=== PATIENT | male | born 1985 | race Caucasian/White ===

== ENCOUNTER 2017-10-13 00:50 | Inpatient (IN) | payer BC ==
--- NOTE | 2017-10-13 00:57 | EDM.PDOC ---
ED HPI GENERAL MEDICAL PROBLEM - General Chief Complaint: Gastrointestinal Problem Stated Complaint: VOMITING/NAUSEA Time Seen by Provider: 10/13/17 00:56 Source of Information: Reports: Patient History Limitations: Reports: No Limitations - History of Present Illness INITIAL COMMENTS - FREE TEXT/NARRATIVE: 32 year old male brought into ED by his aunt for nausea, vomiting and lower back pain. Symptoms began on Monday and initially presented as intermittent nausea and vomiting. Yesterday he developed continuous lower back pain that is worsened by specific movements but he is unsure what kind of movements. The pain is sharp and located around the center of his lower back. Pain does not move or radiate down either legs. He has not had any problems with bowel/ bladder control. He has not had any trauma or falls. His nausea and vomiting also worsened yesterday night and since then he has not been able to hold down any food or liquid. Even ingestion of water makes him vomit immediately. He denies any fever, chills, night sweats, constipation, diarrhea, dysuria, burning with urination, hematuria, confusion, chest pain or sob. He thinks he may be urinating more frequently than normal. He denies any sexual activity. He drinks alcohol 1x/month. He smokes few cigarettes per month. low back Pain Score (Numeric/FACES): 3 - Related Data Allergies Allergy/AdvReac Type Severity Reaction Status Date / Time No Known Allergies Allergy Verified 10/13/17 00:53 Home Meds: Home Meds . [No Known Home Meds] 08/28/14 [History] Past Medical History - Past Health History Medical/Surgical History: Denies Medical/Surgical History Other Musculoskeletal History: tendonitis Social & Family History - Tobacco Use Smoking Status *Q: Current Every Day Smoker Years of Tobacco use: 16 Second Hand Smoke Exposure: No - Alcohol Use Days Per Week of Alcohol Use: 0 - Recreational Drug Use Recreational Drug Use: No ED ROS GENERAL - Review of Systems Review Of Systems: See Below Constitutional: Reports: Weakness. Denies: Fever, Chills, Night Sweats HEENT: Reports: No Symptoms Respiratory: Reports: No Symptoms Cardiovascular: Reports: No Symptoms Endocrine: Reports: No Symptoms GI/Abdominal: Reports: Nausea, Vomiting. Denies: Abdominal Pain, Black Stool, Bloody Stool, Constipation, Diarrhea, Decreased Appetite, Difficulty Swallowing , Distension : Reports: Frequency, Urgency. Denies: Discharge, Dysuria, Flank Pain, Hematuria, Incontinence Musculoskeletal: Reports: No Symptoms Skin: Reports: No Symptoms Neurological: Reports: No Symptoms Psychiatric: Reports: No Symptoms Hematologic/Lymphatic: Reports: No Symptoms Immunologic: Reports: No Symptoms ED EXAM, GENERAL - Physical Exam Exam: See Below Exam Limited By: No Limitations General Appearance: Alert, WD/WN, Mild Distress Eye Exam: Bilateral Eye: PERRL Ears: Normal External Exam, Hearing Grossly Normal Nose: Normal Inspection, Normal Mucosa, No Blood Throat/Mouth: Normal Inspection, Normal Lips, Normal Teeth, Normal Gums, Normal Voice, No Airway Compromise Head: Atraumatic, Normocephalic Neck: Normal Inspection, Supple, Non-Tender, Full Range of Motion Respiratory/Chest: No Respiratory Distress, Lungs Clear, Normal Breath Sounds, No Accessory Muscle Use Cardiovascular: Normal Peripheral Pulses, Regular Rate, Rhythm, No Edema, No Gallop Peripheral Pulses: 2+: Radial (L), Radial (R) GI/Abdominal: Normal Bowel Sounds, Soft, Non-Tender, No Distention. No: Guarding, Rigid, Rebound, Hepatomegaly, Splenomegaly Back Exam: Normal Inspection, Full Range of Motion, Other (SLR negative ). No: CVA Tenderness (L), CVA Tenderness (R), Decreased Range of Motion Extremities: Normal Inspection, Non-Tender, No Pedal Edema, Slow Capillary Refill. No: Pedal Edema Neurological: Alert, Oriented, CN II-XII Intact, Normal Cognition, Normal Gait Psychiatric: Normal Affect, Normal Mood Skin Exam: Warm, Dry, Intact, No Rash Lymphatic: No Adenopathy Course - Vital Signs Last Recorded V/S: Last Vital Signs Temp 37.1 C 10/13/17 03:08 Pulse 77 10/13/17 00:50 Resp 18 10/13/17 03:08 BP 130/89 10/13/17 03:08 Pulse Ox 95 10/13/17 03:08 - Orders/Labs/Meds Orders: Active Orders 24 hr Category Date Time Status Abdomen Pelvis wo Cont [CT] Stat Exams 10/13/17 02:27 Taken CULTURE BLOOD [BC] Stat Lab 10/13/17 02:37 Received CULTURE BLOOD [BC] Stat Lab 10/13/17 02:48 Received Sodium Chloride 0.9% [Normal Saline] 1,000 ml Med 10/13/17 03:00 Active IV ASDIRECTED Blood Culture x2 Reflex Set [OM.PC] Stat Oth 10/13/17 02:26 Ordered Medication Orders Sodium Chloride (Normal Saline) 1,000 mls @ 125 mls/hr IV ASDIRECTED ABBEY Last Admin: 10/13/17 03:04 Dose: 125 mls/hr Labs: Laboratory Tests 10/13/17 10/13/17 10/13/17 Range/Units 01:00 01:27 01:27 WBC 12.72 H (4.0-11.0) K/uL RBC 4.98 (4.50-5.90) M/uL Hgb 15.2 (13.0-17.0) g/dL Hct 44.2 (38.0-50.0) % MCV 88.8 (80.0-98.0) fL MCH 30.5 (27.0-32.0) pg MCHC 34.4 (31.0-37.0) g/dL RDW Std Deviation 40.1 (28.0-62.0) fl RDW Coeff of Ephraim 13 (11.0-15.0) % Plt Count 271 (150-400) K/uL MPV 8.80 (7.40-12.00) fL Neut % (Auto) 72.0 (48.0-80.0) % Lymph % (Auto) 16.9 (16.0-40.0) % [place] % (Auto) 9.3 (0.0-15.0) % Eos % (Auto) 1.5 (0.0-7.0) % Baso % (Auto) 0.3 (0.0-1.5) % Neut # (Auto) 9.2 H (1.4-5.7) K/uL Lymph # (Auto) 2.2 (0.6-2.4) K/uL [place] # (Auto) 1.2 H (0.0-0.8) K/uL Eos # (Auto) 0.2 (0.0-0.7) K/uL Baso # (Auto) 0.0 (0.0-0.1) K/uL Sodium 146 (136-146) mmol/L Potassium 3.9 (3.5-5.1) mmol/L Chloride 110 (98-110) mmol/L Carbon Dioxide 24 (21-31) mmol/L BUN 19 (6.0-23.0) mg/dL Creatinine 2.2 H (0.6-1.5) mg/dL Est Cr Clr Drug Dosing 49.77 mL/min Estimated GFR (MDRD) 34.9 ml/min Glucose 106 (60-110) mg/dL Calcium 9.2 (8.8-10.8) mg/dL Total Bilirubin 0.7 (0.1-1.5) mg/dL AST 20 (5-40) IU/L ALT 21 (8-54) IU/L Alkaline Phosphatase 67 (40-150) Creatine Kinase (9-236) IU/L Total Protein 7.2 (6.0-8.0) g/dL Albumin 4.1 (3.5-5.0) g/dL Globulin 3.1 (2.0-3.5) g/dL Albumin/Globulin Ratio 1.3 (1.3-2.8) Lipase (7-80) U/L Urine Color YELLOW Urine Appearance CLEAR Urine pH 6.0 (5.0-8.0) Ur Specific [place] <= 1.005 (1.001-1.035) Urine Protein TRACE (NEGATIVE) mg/dL Urine Glucose (UA) NEGATIVE (NEGATIVE) mg/dL Urine Ketones NEGATIVE (NEGATIVE) mg/dL Urine Occult Blood LARGE H (NEGATIVE) Urine Nitrite NEGATIVE (NEGATIVE) Urine Bilirubin NEGATIVE (NEGATIVE) Urine Urobilinogen 0.2 (<2.0) EU/dL Ur Leukocyte Esterase NEGATIVE (NEGATIVE) Urine RBC 2-4 (0-2/HPF) Urine WBC 2-3 (0-5/HPF) Ur Epithelial Cells RARE (NONE-FEW) Urine Bacteria FEW (NEGATIVE) 10/13/17 10/13/17 Range/Units 01:27 01:27 WBC (4.0-11.0) K/uL RBC (4.50-5.90) M/uL Hgb (13.0-17.0) g/dL Hct (38.0-50.0) % MCV (80.0-98.0) fL MCH (27.0-32.0) pg MCHC (31.0-37.0) g/dL RDW Std Deviation (28.0-62.0) fl RDW Coeff of Ephraim (11.0-15.0) % Plt Count (150-400) K/uL MPV (7.40-12.00) fL Neut % (Auto) (48.0-80.0) % Lymph % (Auto) (16.0-40.0) % [place] % (Auto) (0.0-15.0) % Eos % (Auto) (0.0-7.0) % Baso % (Auto) (0.0-1.5) % Neut # (Auto) (1.4-5.7) K/uL Lymph # (Auto) (0.6-2.4) K/uL [place] # (Auto) (0.0-0.8) K/uL Eos # (Auto) (0.0-0.7) K/uL Baso # (Auto) (0.0-0.1) K/uL Sodium (136-146) mmol/L Potassium (3.5-5.1) mmol/L Chloride (98-110) mmol/L Carbon Dioxide (21-31) mmol/L BUN (6.0-23.0) mg/dL Creatinine (0.6-1.5) mg/dL Est Cr Clr Drug Dosing mL/min Estimated GFR (MDRD) ml/min Glucose (60-110) mg/dL Calcium (8.8-10.8) mg/dL Total Bilirubin (0.1-1.5) mg/dL AST (5-40) IU/L ALT (8-54) IU/L Alkaline Phosphatase (40-150) Creatine Kinase 91 (9-236) IU/L Total Protein (6.0-8.0) g/dL Albumin (3.5-5.0) g/dL Globulin (2.0-3.5) g/dL Albumin/Globulin Ratio (1.3-2.8) Lipase 17 (7-80) U/L Urine Color Urine Appearance Urine pH (5.0-8.0) Ur Specific [place] (1.001-1.035) Urine Protein (NEGATIVE) mg/dL Urine Glucose (UA) (NEGATIVE) mg/dL Urine Ketones (NEGATIVE) mg/dL Urine Occult Blood (NEGATIVE) Urine Nitrite (NEGATIVE) Urine Bilirubin (NEGATIVE) Urine Urobilinogen (<2.0) EU/dL Ur Leukocyte Esterase (NEGATIVE) Urine RBC (0-2/HPF) Urine WBC (0-5/HPF) Ur Epithelial Cells (NONE-FEW) Urine Bacteria (NEGATIVE) Meds: Medications Generic Name Dose Route Start Last Admin Trade Name Genevieve PRN Reason Stop Dose Admin Sodium Chloride 1,000 mls @ 125 mls/hr 10/13/17 03:00 10/13/17 03:04 Normal Saline IV 125 mls/hr ASDIRECTED ABBEY Administration Discontinued Medications Generic Name Dose Route Start Last Admin Trade Name Genevieve PRN Reason Stop Dose Admin Ceftriaxone Sodium 1,000 mg 10/13/17 02:31 10/13/17 02:35 Rocephin IVPUSH 10/13/17 02:32 Not Given ONETIME ONE Sodium Chloride 1,000 mls @ 999 mls/hr 10/13/17 01:15 10/13/17 01:30 Normal Saline IV 10/13/17 02:15 999 mls/hr .BOLUS ONE Administration Ceftriaxone Sodium/Dextrose 1 50 mls @ 100 mls/hr 10/13/17 02:33 10/13/17 03: 04 gm/ Premix IV 10/13/17 03:02 100 mls/hr ONETIME ONE Administration Ondansetron HCl 4 mg 10/13/17 01:27 10/13/17 01:32 Zofran IVPUSH 10/13/17 01:28 4 mg ONETIME ONE Administration Departure - Departure Time of Disposition: 05:16 Disposition: Admitted As Inpatient 66 Clinical Impression: Acute kidney failure, Hematuria, Nausea & vomiting - Discharge Information Referrals: PCP,None [Primary Care Provider] - Forms: ED Department Discharge Additional Instructions: The following information is given to patients seen in the emergency department who are being discharged to home. This information is to outline your options for follow-up care. We provide all patients seen in our emergency department with a follow-up referral. The need for follow-up, as well as the timing and circumstances, are variable depending upon the specifics of your emergency department visit. If you don't have a primary care physician on staff, we will provide you with a referral. We always advise you to contact your personal physician following an emergency department visit to inform them of the circumstance of the visit and for follow-up with them and/or the need for any referrals to a consulting specialist. The emergency department will also refer you to a specialist when appropriate. This referral assures that you have the opportunity for followup care with a specialist. All of these measure are taken in an effort to provide you with optimal care, which includes your followup. Under all circumstances we always encourage you to contact your private physician who remains a resource for coordinating your care. When calling for followup care, please make the office aware that this follow-up is from your recent emergency room visit. If for any reason you are refused follow-up, please contact the [facility] emergency department at and asked to speak to the emergency department charge nurse. - Problem List Review Problem List Initiated/Reviewed/Updated: Yes - My Orders Last 24 Hours: My Active Orders 10/13/17 02:26 Blood Culture x2 Reflex Set [OM.PC] Stat 10/13/17 02:27 Abdomen Pelvis wo Cont [CT] Stat 10/13/17 02:37 CULTURE BLOOD [BC] Stat 10/13/17 02:48 CULTURE BLOOD [BC] Stat 10/13/17 03:00 Sodium Chloride 0.9% [Normal Saline] 1,000 ml IV ASDIRECTED - Assessment/Plan Last 24 Hours: My Active Orders 10/13/17 02:26 Blood Culture x2 Reflex Set [OM.PC] Stat 10/13/17 02:27 Abdomen Pelvis wo Cont [CT] Stat 10/13/17 02:37 CULTURE BLOOD [BC] Stat 10/13/17 02:48 CULTURE BLOOD [BC] Stat 10/13/17 03:00 Sodium Chloride 0.9% [Normal Saline] 1,000 ml IV ASDIRECTED Plan: Diagnostics: CBC, CMP, UA, Blood Cultures, CT Abd/Pelvis wo contrast, Total [employer]: IV NS boxus x1, IV NS infusion @ 125 ml/hour, Zofran 4 mg IV, Rocephin 1 gm IV Assessment: MARY ELLEN Hematuria Nausea/Vomiting Plan: admit to inpatient - patient has been accepted by Dr. Fall
[2017-10-13] MEDS ORDERED: Sodium Chloride 0.9% 1,000 ML IV ONE (01:15)
[2017-10-13] MEDS ORDERED: Ondansetron 4 MG/2 ML SDV IVPUSH ONE (01:27)
[2017-10-13] MEDS ORDERED: cefTRIAXone 1,000 MG VIAL IVPUSH ONE (02:31)
[2017-10-13] MEDS ORDERED: cefTRIAXone 1 GM in Premix Bag 1 BAG IV ONE (02:33)
[2017-10-13] MEDS: Sodium Chloride 0.9% 1,000 ML IV SCH ×2 (03:04→10:12)
[2017-10-13] MEDS ORDERED: Ondansetron 4 MG/2 ML SDV IVPUSH PRN (09:37)
[2017-10-13] MEDS ORDERED: cefTRIAXone 1 GM in Premix Bag 1 BAG IV SCH (10:00)
[2017-10-13] MEDS: Acetaminophen 325 MG Tab PO PRN ×2 (10:25→20:01)
[2017-10-13] MEDS: Sodium Chloride 0.45% 1,000 ML IV SCH ×2 (12:26→19:17)
--- NOTE | 2017-10-13 14:18 | CT ---
EXAM DATE: 10/13/17 PATIENT'S AGE: 32 Patient: BATSHEVA AZAR Facility: [place], [place] Site . Site : 1985 Study: CT Abdomen/Pelvis [id number] 3:07:19 AM Ordering Physician: Mariangel Delgadillo Final Report: INDICATION: Nausea, vomiting, leukocytosis, micro hematuria TECHNIQUE: CT abdomen and pelvis without contrast. COMPARISON: None FINDINGS: Lower chest: Unremarkable. Liver: Unremarkable. Spleen: Unremarkable. Pancreas: Unremarkable. Gallbladder and bile ducts: Unremarkable. Adrenal glands: Unremarkable. Kidneys: Unremarkable. No kidney or ureteral stones and no hydronephrosis. GI tract: Unremarkable. Appendix is normal. Vascular structures: Unremarkable. Lymph nodes: Unremarkable. Miscellaneous: Unremarkable. No free air or significant free fluid. Pelvic Organs: Unremarkable. Bones: Unremarkable for age. IMPRESSION: Unremarkable noncontrast CT of the abdomen and pelvis. No urinary tract stones, hydronephrosis, or other cause for flank pain. Please note that all CT scans at this facility use dose modulation, iterative reconstruction, and/or weight-based dosing when appropriate to reduce radiation dose to as low as reasonably achievable. Dictated by Yoko Rowan MD @ Oct 13 2017 3:31AM (Electronic Signature) Report Signed by Proxy. [facility]
--- NOTE | 2017-10-13 15:40 | PCM.HP ---
H&P History of Present Illness - General Date of Service: 10/13/17 Admit Problem/Dx: Admission Diagnosis/Problem Admission Diagnosis/Problem Acute kidney injury Patient presented to Er due to intractable vomiting that started 2 days ago , no abdominal pain , no dysuria. No flank pain, no diarrhea , no fever, no similar episodes in the past. he has some mild back pain lower back on and off. No sick contacts. Has history of gout Source of Information: Patient - History of Present Illness Onset of Symptoms: Reports: Gradual Duration of Symptoms: Reports: Day(s): Head Pain Score (Numeric/FACES): 1 low back Pain Score (Numeric/FACES): 0 - Related Data Allergies/Adverse Reactions: Allergies Allergy/AdvReac Type Severity Reaction Status Date / Time No Known Allergies Allergy Verified 10/13/17 00:53 Home Medications: Home Meds . [No Known Home Meds] 08/28/14 [History] Past Medical History - Past Health History Medical/Surgical History: Denies Medical/Surgical History Musculoskeletal History: Reports: Gout Other Musculoskeletal History: tendonitis - Infectious Disease History Infectious Disease History: Reports: Chicken Pox Social & Family History - Family History Family Medical History: Noncontributory - Tobacco Use Smoking Status *Q: Current Some Day Smoker Years of Tobacco use: 14 Packs/Tins Daily: 0 Second Hand Smoke Exposure: No - Caffeine Use Caffeine Use: Reports: Energy Drinks, Soda - Alcohol Use Days Per Week of Alcohol Use: 0 - Recreational Drug Use Recreational Drug Use: No H&P Review of Systems - Review of Systems: Review Of Systems: See Below General: Reports: No Symptoms HEENT: Reports: No Symptoms Pulmonary: Reports: No Symptoms Cardiovascular: Reports: No Symptoms Gastrointestinal: Reports: Nausea, Vomiting Genitourinary: Reports: No Symptoms Musculoskeletal: Reports: Back Pain Skin: Reports: No Symptoms Psychiatric: Reports: No Symptoms Neurological: Reports: No Symptoms Hematologic/Lymphatic: Reports: No Symptoms Immunologic: Reports: No Symptoms Exam - Exam Exam: See Below - Vital Signs Vital Signs: Last Vital Signs Temp 97.9 F 10/13/17 11:30 Pulse 62 10/13/17 11:30 Resp 18 10/13/17 11:30 BP 154/85 H 10/13/17 11:30 Pulse Ox 95 10/13/17 11:30 Weight: 297 lb 5 oz - Exam General: Alert, Oriented, Cooperative HEENT: Conjunctiva Clear Neck: Supple, Trachea Midline Lungs: Clear to Auscultation, Normal Respiratory Effort Cardiovascular: Regular Rate, Regular Rhythm, Normal S1, Normal S2 GI/Abdominal Exam: Normal Bowel Sounds, Soft, Non-Tender, No Organomegaly, No Distention, No Abnormal Bruit Extremities: Normal Inspection Skin: Warm, Dry, Intact Neurological: Cranial Nerves Intact Neuro Extensive - Mental Status: Alert, Oriented x3 Psychiatric: Alert - Patient Data Lab Results Last 24 hrs: Laboratory Results - last 24 hr 10/13/17 Range/Units 09:52 Sodium 143 (136-146) mmol/L Potassium 3.8 (3.5-5.1) mmol/L Chloride 112 H (98-110) mmol/L Carbon Dioxide 21 (21-31) mmol/L BUN 18 (6.0-23.0) mg/dL Creatinine 2.0 H (0.6-1.5) mg/dL Est Cr Clr Drug Dosing 54.75 mL/min Estimated GFR (MDRD) 38.9 ml/min Glucose 98 (60-110) mg/dL Calcium 8.5 L (8.8-10.8) mg/dL Result Diagrams: 10/13/17 01:27 10/13/17 09:52 EKG INTERPRETATION EKG Date: 10/13/17 *Q Meaningful Use (ADM) - VTE *Q VTE Criteria *Q: - Stroke *Q Stroke Criteria *Q: - AMI *Q AMI Criteria *Q: - Problem List (1) Intractable nausea and vomiting SNOMED Code(s): 834780233 ICD Code: R11.2 - NAUSEA WITH VOMITING, UNSPECIFIED Status: Acute Current Visit: Yes (2) Acute kidney failure SNOMED Code(s): 75289473 ICD Code: N17.9 - ACUTE KIDNEY FAILURE, UNSPECIFIED Status: Acute Current Visit: Yes (3) Hematuria SNOMED Code(s): 10997312 ICD Code: R31.9 - HEMATURIA, UNSPECIFIED Status: Acute Current Visit: Yes (4) Gout SNOMED Code(s): 36797397 ICD Code: M10.9 - GOUT, UNSPECIFIED Status: Acute Current Visit: Yes (5) Hematuria, microscopic SNOMED Code(s): 781701225 ICD Code: R31.29 - OTHER MICROSCOPIC HEMATURIA Status: Acute Current Visit: Yes Problem List Initiated/Reviewed/Updated: Yes Orders Last 24hrs: Active Orders 24 hr Category Date Time Status Patient Status [ADT] Routine ADT 10/13/17 09:38 Active Intake and Output [RC] QSHIFT Care 10/13/17 09:39 Active Oxygen Therapy [RC] PRN Care 10/13/17 09:38 Active Up ad Ronel [RC] ASDIRECTED Care 10/13/17 09:37 Active VTE/DVT Education [RC] PER UNIT ROUTINE Care 10/13/17 09:38 Active Vital Signs [RC] Q4H Care 10/13/17 09:38 Active 2 Gram Sodium Diet [DIET] Diet 10/13/17 Breakfast Active BASIC METABOLIC PANEL,BMP [CHEM] AM Lab 10/14/17 05:11 Ordered BASIC METABOLIC PANEL,BMP [CHEM] AM Lab 10/15/17 05:11 Ordered BASIC METABOLIC PANEL,BMP [CHEM] AM Lab 10/16/17 05:11 Ordered BASIC METABOLIC PANEL,BMP [CHEM] AM Lab 10/17/17 05:11 Ordered BASIC METABOLIC PANEL,BMP [CHEM] AM Lab 10/18/17 05:11 Ordered CBC WITH AUTO DIFF [HEME] AM Lab 10/14/17 05:11 Ordered CBC WITH AUTO DIFF [HEME] AM Lab 10/15/17 05:11 Ordered CBC WITH AUTO DIFF [HEME] AM Lab 10/16/17 05:11 Ordered CBC WITH AUTO DIFF [HEME] AM Lab 10/17/17 05:11 Ordered CBC WITH AUTO DIFF [HEME] AM Lab 10/18/17 05:11 Ordered CULTURE BLOOD [BC] Stat Lab 10/13/17 09:52 Received CULTURE BLOOD [BC] Stat Lab 10/13/17 10:02 Received CULTURE URINE [RM] Routine Lab 10/13/17 12:07 Received URIC ACID [CHEM] Routine Lab 10/13/17 15:37 Ordered Acetaminophen [Tylenol] Med 10/13/17 09:37 Active 650 mg PO Q4H PRN Ondansetron [Zofran] Med 10/13/17 09:37 Active 4 mg IVPUSH Q6H PRN Sodium Chloride 0.45% 1,000 ml Med 10/13/17 10:00 Active IV ASDIRECTED cefTRIAXone [Rocephin in Dextrose,Iso-Osm 1 GM/50 ML] 1 Med 10/13/17 10:00 Active gm Premix Bag 1 bag IV Q24H Blood Culture x2 Reflex Set [OM.PC] Stat Oth 10/13/17 09:45 Ordered Resuscitation Status Routine Resus Stat 10/13/17 09:37 Ordered Medication Orders Acetaminophen (Tylenol) 650 mg PO Q4H PRN PRN Reason: Pain (Mild 1-3)/fever Last Admin: 10/13/17 10:25 Dose: 650 mg Ceftriaxone Sodium/Dextrose 1 (gm/ Premix) 50 mls @ 100 mls/hr IV Q24H ABBEY Last Admin: 10/13/17 10:12 Dose: 100 mls/hr Sodium Chloride (Sodium Chloride 0.45%) 1,000 mls @ 150 mls/hr IV ASDIRECTED [facility] Last Admin: 10/13/17 12:26 Dose: 125 mls/hr Ondansetron HCl (Zofran) 4 mg IVPUSH Q6H PRN PRN Reason: Nausea/Vomiting Assessment/Plan Comment:: A/p acute kidney failure - will give patient iv fluids , will order uric acid level ,if elevated will start patient on allopurinol 100 mg po daily, will order renal sonogram , antinausea medication, monitor kidney function Intractable nausea and vomiting- subsided- patient had diet today and tolerated , probable due to a stomach virus , continue Iv fluids. Morbid obesity , patient was advised to loose weight. Gout- allopurinol 100 mg po daily. Dvt prof - heparin sq
[2017-10-13] MEDS ORDERED: Allopurinol 100 MG Tab PO ONE (17:06)
[2017-10-13] MEDS ORDERED: Allopurinol 300 MG Tab PO ONE (17:06)
[2017-10-13] MEDS: Allopurinol 100 MG Tab PO SCH ×3 (17:46→18:53)
[2017-10-13] MEDS ORDERED: Acetaminophen/oxyCODONE 325-5 MG Tab PO PRN (23:40)
[2017-10-14] MEDS ORDERED: amLODIPine 5 MG Tab PO ONE ×2 (00:08→23:43)
[2017-10-14] MEDS: Sodium Chloride 0.45% 1,000 ML IV SCH ×2 (01:30→08:18)
[2017-10-14] MEDS: Allopurinol 100 MG Tab PO SCH (08:28)
[2017-10-14 09:25] VITALS: BP 137/102
--- NOTE | 2017-10-14 14:30 | PCM.DCSUM1 ---
Discharge Summary - Hospital Course HPI Initial Comments: Patient presented to [facility] due to intractable vomiting that started 2 days ago , no abdominal pain , no dysuria. No flank pain, no diarrhea , no fever, no similar episodes in the past. he has some mild back pain lower back on and off. No sick contacts. Has history of gout Source of Information: Patient - Discharge Data Discharge Date: 10/14/17 Discharge Disposition: Home, Self-Care 01 Condition: Fair - Discharge Diagnosis/Problem(s) (1) Intractable nausea and vomiting SNOMED Code(s): 115793928 ICD Code: R11.2 - NAUSEA WITH VOMITING, UNSPECIFIED Status: Acute (2) Acute kidney failure SNOMED Code(s): 20976670 ICD Code: N17.9 - ACUTE KIDNEY FAILURE, UNSPECIFIED Status: Acute (3) Hematuria SNOMED Code(s): 49486450 ICD Code: R31.9 - HEMATURIA, UNSPECIFIED Status: Acute (4) Gout SNOMED Code(s): 43359747 ICD Code: M10.9 - GOUT, UNSPECIFIED Status: Acute (5) Hematuria, microscopic SNOMED Code(s): 815576731 ICD Code: R31.29 - OTHER MICROSCOPIC HEMATURIA Status: Acute - Patient Summary/Data Hospital Course: Patient 32 y old man admitted with elevated creatinine 2.2 , BUN nl , BUN creat ratio less than 20 and intractable vomiting for the past 2 days . Vomiting subsided and his creatinine improved to 1.8 , slowly. his uric acid was elevated and patient was given allopurinol 100 mg po daily , f/up with nephrology in 2-3 days. Patient US renal was normal , he had microscopic hematuria , was able to drink and did not wanted to remain in the hospital longer for iv hydration , he said he will drinking plenty of fluids at home . UA : microscopic hematuria - probable due to uric acid crystals - Patient Instructions Diet: Heart Healthy Diet Driving: Do Not Drive Showering/Bathing: May Shower - Discharge Plan Prescriptions/Med Rec: Allopurinol [Zyloprim] 100 mg PO DAILY #30 tablet amLODIPine [Norvasc] 10 mg PO DAILY #30 tablet Home Medications: Home Meds Allopurinol [Zyloprim] 100 mg PO DAILY #30 tablet 10/14/17 [Rx] amLODIPine [Norvasc] 10 mg PO DAILY #30 tablet 10/14/17 [Rx] Patient Handouts: Acute Kidney Injury, Allopurinol tablets, Gout, [id number] , Nausea and Vomiting, Adult, Amlodipine tablets Referrals: Lorena Bethea MD [Resident] - 10/25/17 2:30 pm Florentino Griffin MD [Physician] - (Please call his clinic on Monday. ) - Discharge Summary/Plan Comment DC Time >30 min.: Yes - General Info Date of Service: 10/14/17 Admission Dx/Problem (Free Text: Admission Diagnosis/Problem Admission Diagnosis/Problem Acute kidney injury Patient presented to [facility] due to intractable vomiting that started 2 days ago , no abdominal pain , no dysuria. No flank pain, no diarrhea , no fever, no similar episodes in the past. he has some mild back pain lower back on and off. No sick contacts. Has history of gout Subjective Update: Feeling better today . Patient wants to go home. - Review of Systems General: Reports: No Symptoms HEENT: Reports: No Symptoms Pulmonary: Reports: No Symptoms Cardiovascular: Reports: No Symptoms Gastrointestinal: Reports: No Symptoms Genitourinary: Reports: No Symptoms Musculoskeletal: Reports: No Symptoms - Patient Data Vitals - Most Recent: Last Vital Signs Temp 98.3 F 10/14/17 08:00 Pulse 62 10/14/17 08:00 Resp 16 10/14/17 08:00 BP 137/102 H 10/14/17 08:00 Pulse Ox 96 10/14/17 08:00 Weight - Most Recent: 297 lb 5 oz I&O - Last 24 hours: Intake & Output 10/13/17 10/14/17 10/14/17 22:59 06:59 14:59 Intake Total 2504 1820 5876 Output Total 1250 1550 3000 Balance 3590 183 1060 Lab Results - Last 24 hrs: Laboratory Results - last 24 hr 10/13/17 10/14/17 10/14/17 Range/Units 09:52 05:58 05:58 WBC 9.79 (4.0-11.0) K/uL RBC 4.51 (4.50-5.90) M/uL Hgb 14.0 (13.0-17.0) g/dL Hct 40.5 (38.0-50.0) % MCV 89.8 (80.0-98.0) fL MCH 31.0 (27.0-32.0) pg MCHC 34.6 (31.0-37.0) g/dL RDW Std Deviation 41.2 (28.0-62.0) fl RDW Coeff of [place]raim 13 (11.0-15.0) % Plt Count 239 (150-400) K/uL MPV 9.00 (7.40-12.00) fL Neut % (Auto) 68.9 (48.0-80.0) % Lymph % (Auto) 19.4 (16.0-40.0) % [place] % (Auto) 8.9 (0.0-15.0) % Eos % (Auto) 2.2 (0.0-7.0) % Baso % (Auto) 0.6 (0.0-1.5) % Neut # (Auto) 6.7 H (1.4-5.7) K/uL Lymph # (Auto) 1.9 (0.6-2.4) K/uL [place] # (Auto) 0.9 H (0.0-0.8) K/uL Eos # (Auto) 0.2 (0.0-0.7) K/uL Baso # (Auto) 0.1 (0.0-0.1) K/uL Nucleated RBC % 0.0 /100WBC Nucleated RBCs # 0 K/uL Sodium 143 (136-146) mmol/L Potassium 4.0 (3.5-5.1) mmol/L Chloride 112 H (98-110) mmol/L Carbon Dioxide 23 (21-31) mmol/L BUN 18 (6.0-23.0) mg/dL Creatinine 1.8 H (0.6-1.5) mg/dL Est Cr Clr Drug Dosing 60.83 mL/min Estimated GFR (MDRD) 43.9 ml/min Glucose 98 (60-110) mg/dL Uric Acid 10.7 H (2.1-7.4) mg/dL Calcium 8.8 (8.8-10.8) mg/dL ANJEL Results - Last 24 hrs: Microbiology 10/13/17 10:02 Aerobic Blood Culture - Preliminary Blood - Venous - Lab Draw NO GROWTH AFTER 1 DAY Anaerobic Blood Culture - Preliminary NO GROWTH AFTER 1 DAY 10/13/17 09:52 Aerobic Blood Culture - Preliminary Blood - Venous NO GROWTH AFTER 1 DAY Anaerobic Blood Culture - Preliminary NO GROWTH AFTER 1 DAY Med Orders - Current: Current Medications Discontinued Medications Acetaminophen (Tylenol) 650 mg PO Q4H PRN PRN Reason: Pain (Mild 1-3)/fever Last Admin: 10/13/17 20:01 Dose: 650 mg Allopurinol (Zyloprim) 300 mg PO ONETIME ONE Stop: 10/13/17 17:07 Last Admin: 10/13/17 17:46 Dose: Not Given Allopurinol (Zyloprim) 100 mg PO DAILY [facility] Last Admin: 10/14/17 08:28 Dose: 100 mg Allopurinol (Zyloprim) 100 mg PO DAILY ONE Stop: 10/13/17 17:07 Last Admin: 10/13/17 17:40 Dose: 100 mg Amlodipine Besylate (Norvasc) 10 mg PO ONETIME ONE Stop: 10/14/17 23:44 Amlodipine Besylate (Norvasc) 10 mg PO STAT ONE Stop: 10/14/17 00:09 Last Admin: 10/14/17 04:18 Dose: Not Given Amlodipine Besylate (Norvasc) 10 mg PO DAILY [facility] Ceftriaxone Sodium (Rocephin) 1,000 mg IVPUSH ONETIME ONE Stop: 10/13/17 02:32 Last Admin: 10/13/17 02:35 Dose: Not Given Sodium Chloride (Normal Saline) 1,000 mls @ 999 mls/hr IV .BOLUS ONE Stop: 10/13/17 02:15 Last Admin: 10/13/17 01:30 Dose: 999 mls/hr Ceftriaxone Sodium/Dextrose 1 (gm/ Premix) 50 mls @ 100 mls/hr IV ONETIME ONE Stop: 10/13/17 03:02 Last Admin: 10/13/17 03:04 Dose: 100 mls/hr Sodium Chloride (Normal Saline) 1,000 mls @ 125 mls/hr IV ASDIRECTED [facility] Last Admin: 10/13/17 10:12 Dose: 125 mls/hr Ceftriaxone Sodium/Dextrose 1 (gm/ Premix) 50 mls @ 100 mls/hr IV Q24H [facility] Last Admin: 10/13/17 10:12 Dose: 100 mls/hr Sodium Chloride (Sodium Chloride 0.45%) 1,000 mls @ 150 mls/hr IV ASDIRECTED ABBEY Last Admin: 10/14/17 08:18 Dose: 125 mls/hr Ondansetron HCl (Zofran) 4 mg IVPUSH ONETIME ONE Stop: 10/13/17 01:28 Last Admin: 10/13/17 01:32 Dose: 4 mg Ondansetron HCl (Zofran) 4 mg IVPUSH Q6H PRN PRN Reason: Nausea/Vomiting Oxycodone/Acetaminophen (Percocet 325-5 Mg) 1 tab PO Q6H PRN PRN Reason: Pain - Exam General: Reports: Alert, Oriented HEENT: Reports: Pupils Equal, Pupils Reactive Neck: Reports: Supple, Trachea Midline, No JVD Lungs: Reports: Clear to Auscultation, Normal Respiratory Effort Cardiovascular: Reports: Regular Rate, Regular Rhythm GI/Abdominal Exam: Normal Bowel Sounds, Soft, Non-Tender, No Organomegaly Back Exam: Reports: Normal Inspection Extremities: Normal Inspection, Normal Range of Motion, Non-Tender, No Pedal Edema Skin: Reports: Warm, Dry Neurological: Reports: No New Focal Deficit Psy/Mental Status: Reports: Alert, Normal Affect *Q Meaningful Use (DIS) - VTE *Q VTE Criteria *Q: - Stroke *Q Stroke Criteria *Q: - AMI *Q AMI Criteria *Q:
--- NOTE | 2017-10-15 07:51 | US ---
EXAM DATE: 10/13/17 PATIENT'S AGE: 32 Patient: BATSHEVA AZAR Facility: [place], [place] Site . Site : 1985 Study: US Abdomen [id number]/25/2017 11:59:30 AM Ordering Physician: Juan David Castro Final Report: INDICATION: Elevated creatinine at 1.8. Gout. Technique: Renal and bladder ultrasound. Findings: Prevoid bladder volume is 344 mL with the urinary bladder measuring 6.2 x 11.0 x 9.7 cm. Right kidney measures 12.5 cm and left kidney measures 12.2 cm. No evidence for hydronephrosis in either kidney. No postvoid residual within the urinary bladder. Arterial and venous blood flow confirmed to both kidneys. Resistive indices it in the right kidney are 0.62. The resistive indices in the left kidney are 0.63. No focal abnormalities in either kidney. Bilateral ureteral jets confirmed indicating patency of the ureters. Remainder negative. Impression: No significant abnormalities in the kidneys or urinary bladder. Dictated by Bernardino Billy MD @ Oct 14 2017 12:17PM (Electronic Signature) Report Signed by Proxy. NELLY
[2017-10-15] MEDS ORDERED: amLODIPine 5 MG Tab PO SCH (09:00)
== END 2017-10-14 12:40 | disposition home or self-care (01) | DRG 249 ==
LOC: MW.ED 00:50 → MW.MS 05:19
PROVIDERS: ADMIT Internal Medicine; ATTEND Internal Medicine
DX: R11.2 Nausea with vomiting, unspecified (principal); N17.9 Acute kidney failure, unspecified; M10.9 Gout, unspecified; R31.29 Other microscopic hematuria; F17.200 Nicotine dependence, unspecified, uncomplicated; E66.01 Morbid (severe) obesity due to excess calories; Z68.41 Body mass index [BMI] 40.0-44.9, adult
CPT/HCPCS: 36415; 74176; 74176-26; 76775; 76775-26; 80048; 80053; 81001; 82550; 83690; 84550; 85025; 87040; 87086; 96361; 96365; 96375; 99284; 99285-25; A9270-GY; J0696; J2405; J7030; J7040